=== PATIENT | male | born 1960 | race Caucasian/White ===

== ENCOUNTER 2019-04-27 15:50 | Inpatient (IN) | payer BC ==
[~2019-04-27] VITALS: Ht 167.6 cm; Wt 57.6 kg
[~2019-04-27 15:50] MED LIST: Carafate1 GM PO; PANTOPRAZOLE SO40 MG PO
[2019-04-27 15:56] VITALS: BP 155/80
[2019-04-27 16:07] LABS: BASO % 0.7 % (0.0-1.0); EOS # 0.1 10*3/uL (0.0-0.4); HEMATOCRIT 43.8 % (42.0-52.0); HEMOGLOBIN 13.8 g/dl (14.0-18.0); LYMPH # 1.7 10*3/uL (1.3-4.4); LYMPH % 39.9 % (27.0-41.0); MEAN CELL VOLUME 91.4 fl (80.0-94.0); MEAN CORPUSCULAR HGB 28.8 pg (27.0-31.0); MEAN CORPUSCULAR HGB CONC 31.5 g/dl (33.0-37.0); MONO # 0.4 10*3/uL (0.1-1.0); MONO % 9.8 % (3.0-9.0); NEUT % 46.4 % (47.0-73.0); PLATELET COUNT AUTOMATED 245 10*3/uL (130-400); RED BLOOD COUNT 4.79 10*6/uL (4.50-5.90); RED CELL DISTRI WIDTH 13.1 % (0-14.5); WHITE BLOOD COUNT 4.3 10*3/uL (4.8-10.8)
[2019-04-27 16:16] LABS: ACT PARTIAL THROMBO TIME 30.2 SECONDS (20.0-32.1)
[2019-04-27 16:25] LABS: ALBUMIN 3.7 gm/dl (3.1-4.5); ALKALINE PHOSPHATASE 66 U/L (45-117); BUN 12 mg/dl (7-24); CHLORIDE 105 mmol/L (98-107); CREATININE 0.89 mg/dL (0.70-1.30); POTASSIUM 4.1 mmol/L (3.5-5.1); SGOT/AST 27 IU/L (3-35); SGPT/ALT 29 U/L (12-78); SODIUM 139 mmol/L (136-145); TOTAL PROTEIN 7.4 gm/dL (6.4-8.2)
[2019-04-27 16:26] LABS: TROPONIN I < 0.015 ng/ml (<0.045)
--- NOTE | 2019-04-27 16:38 | NUR ---
PATIENT A&O X3, DENIES ANY WOUNDS.
[2019-04-27 17:05] VITALS: BP 147/83
--- NOTE | 2019-04-27 17:05 | NUR ---
A 59, admitted to , under the services of ADDISON Shook DO with a diagnosis of CHEST PAIN. Chief complaint is CHEST PAIN. Patient arrived via bed from ER. Monitor applied. Initial assessment completed. Vital signs taken and recorded. ADDISON SHOOK DO notified of admission to the unit. Orders received. See assessment for past medical history, medications and allergies. Patient and/or family oriented to unit. [address] visitation policy reviewed. Clothing/patient valuable form completed. SKIN INTACT WITH NO WOUNDS SIN WEEMS
--- NOTE | 2019-04-27 18:41 | NUR ---
SPOKE TO DR BUSTOS REGARDING NEW PT CONSULT. NO NEW ORDERS
[2019-04-27 19:07] LABS: TROPONIN I < 0.015 ng/ml (<0.045)
[2019-04-27 20:00] VITALS: BP 116/68
--- NOTE | 2019-04-27 21:52 | NUR ---
PT GIVEN FLU SHOT ORDERED. INJECTION GIVEN IN LEFT DELTOID. PATIENT TOLERATED WELL.
--- NOTE | 2019-04-27 23:23 | NUR ---
PT LYING IN BED RESTING, WATCHING TV. PATIENT DENIES ANY CHEST PAIN OR OTHER SYMPTOMS AT THIS TIME. WILL CONTINUE TO MONITOR. CALL LIGHT WITHIN REACH.
--- NOTE | 2019-04-27 23:59 | NUR ---
24 HR chart check completed.
[2019-04-28] VITALS: BP 125/74
[2019-04-28 06:29] LABS: ALBUMIN 3.3 gm/dl (3.1-4.5); ALKALINE PHOSPHATASE 59 U/L (45-117); BUN 18 mg/dl (7-24); CHLORIDE 106 mmol/L (98-107); CHOLESTEROL 138 mg/dL (<200); CREATININE 0.81 mg/dL (0.70-1.30); FREE T4 0.83 ng/dl (0.76-1.46); HDL CHOLESTEROL 58 mg/dl (40-60); LDL CHOLESTEROL 73 mg/dL (9-159); PHOSPHOROUS 2.7 mg/dL (2.5-4.9); POTASSIUM 4.1 mmol/L (3.5-5.1); SGOT/AST 20 IU/L (3-35); SGPT/ALT 25 U/L (12-78); SODIUM 137 mmol/L (136-145); TOTAL PROTEIN 6.8 gm/dL (6.4-8.2); TRIGLYCERIDES 34 mg/dl (<150); VLDL CHOLESTEROL 7 mg/dL (6-40)
[2019-04-28 06:32] LABS: BASO % 0.2 % (0.0-1.0); HEMATOCRIT 42.7 % (42.0-52.0); HEMOGLOBIN 13.8 g/dl (14.0-18.0); LYMPH # 0.7 10*3/uL (1.3-4.4); LYMPH % 15.2 % (27.0-41.0); MEAN CELL VOLUME 88.4 fl (80.0-94.0); MEAN CORPUSCULAR HGB 28.6 pg (27.0-31.0); MEAN CORPUSCULAR HGB CONC 32.3 g/dl (33.0-37.0); MEAN PLATELET VOLUME 10.9 fl (9.6-12.3); MONO # 0.1 10*3/uL (0.1-1.0); MONO % 2.7 % (3.0-9.0); NEUT # 3.7 10*3/uL (2.3-7.9); NEUT % 81.7 % (47.0-73.0); PLATELET COUNT AUTOMATED 239 10*3/uL (130-400); RED BLOOD COUNT 4.83 10*6/uL (4.50-5.90); RED CELL DISTRI WIDTH 12.8 % (0-14.5); WHITE BLOOD COUNT 4.5 10*3/uL (4.8-10.8)
[2019-04-28 06:34] LABS: THYROID STIM HORMONE (HS) 0.452 uIU/ml (0.358-4.75)
[2019-04-28 08:00] VITALS: BP 110/70
[2019-04-28 12:00] VITALS: BP 119/72
[2019-04-28 16:00] VITALS: BP 117/68
[2019-04-28 20:00] VITALS: BP 114/71
--- NOTE | 2019-04-28 21:16 | NUR ---
24 HR chart check completed.
--- NOTE | 2019-04-28 23:00 | NUR ---
REPORT RECEIVED FROM DENISE HUGHES. PT IS LYING IN BED AT THIS TIME. VOICES NO COMPLAINTS. CALL LIGHT IN REACH.
[2019-04-29] VITALS: BP 121/62
--- NOTE | 2019-04-29 02:26 | NUR ---
24 HR chart check completed.
[2019-04-29 08:00] VITALS: BP 112/80
--- NOTE | 2019-04-29 09:00 | NUR ---
Safety Technician in to see patient. He is currently not in his room. Will follow up at a later time.
--- NOTE | 2019-04-29 09:05 | NUR ---
Not available for echo.
--- NOTE | 2019-04-29 09:40 | NUR ---
INFORMED SIGNED CONSENT OBTAINED FOR STANDARD ONLY GXT. RESTING EKG SINUS BRADYCARDIA HR 56 BP 124/52 IN SUPINE POSITION. STANDING HR 62 BP 104/54. PT COMPLETED 6:00 OF A ANITA PROTOCOL WITH PT COMPLETING STAGE II AT 2.5 MPH AND A 12% GRADE. PT REACHED A PEAK HR OF 151 WHICH REPRESENTS 94% OF PREDICTED MAXIMUM AND A PEAK BP OF 152/70. RARE PVC NOTED, NON DIAGNOSITC ST CHANGES SEEN. TEST TERMINATED DUE TO FATIUGE. LAST RECOVERY HR OF 84 BP 124/60. PT IN STABLE CONDITION, AWAITING TRANSPORT TO ROOM.
[2019-04-29 12:00] VITALS: BP 102/56
--- NOTE | 2019-04-29 15:55 | NUR ---
PT DISCHARGE INSTRUCTIONS READ/GIVEN TO PT. PT DENIED QUESTIONS. CHEST PAIN PAPERS GIVEN. PT DENIES ANY PAIN @ DISCHARGE, PT STABLE @ DISCHARGE. PT SON CAM E TO GET PT PT LEFT VIA WALKING. IV FROM R ARM REMOVED PT RETURNING HOME
== END 2019-04-29 15:55 | disposition home or self-care (01) | DRG 313 ==
LOC: ED 15:50 → EDHOLD 16:29 → 5E 16:29
PROVIDERS: Emergency Medicine; Family Medicine; ADMIT Internal Medicine
PROC: 4A02XM4 Measurement of Cardiac Total Activity, External Approach (ICD-10-PCS; principal; 2019-04-29)
DX: R07.89 Other chest pain (principal); E44.0 Moderate protein-calorie malnutrition; J01.10 Acute frontal sinusitis, unspecified; R00.1 Bradycardia, unspecified; J43.9 Emphysema, unspecified; K21.9 Gastro-esophageal reflux disease without esophagitis; R00.0 Tachycardia, unspecified; I10 Essential (primary) hypertension; R73.9 Hyperglycemia, unspecified; D72.819 Decreased white blood cell count, unspecified; D64.9 Anemia, unspecified; Z87.891 Personal history of nicotine dependence; Z82.49 Family history of ischemic heart disease and other diseases of the circulatory system; Z84.1 Family history of disorders of kidney and ureter; Z79.899 Other long term (current) drug therapy; Z68.20 Body mass index [BMI] 20.0-20.9, adult